=== PATIENT | male | born 1960 | race Caucasian/White ===

== ENCOUNTER 2017-08-31 17:12 | Emergency (ER) | payer SELFPAY ==
[2017-08-31 17:35] LABS: BILIRUBIN NEGATIVE (NEGATIVE); BLOOD TRACE-INTACT (NEGATIVE); CLARITY CLEAR (CLEAR); COLOR YELLOW (YELLOW); GLUCOSE NEGATIVE (NEGATIVE); KETONE NEGATIVE (NEGATIVE); LEUKO ESTERASE NEGATIVE (NEGATIVE); NITRITE NEGATIVE (NEGATIVE); PH 5.5 (5.0-9.0); SPECIFIC GRAVITY >= 1.030 (1.005-1.030); UROBILINOGEN 0.2 E.U./dl (0.2-1.0)
[2017-08-31 17:43] LABS: BACTERIA TRACE; WBC 0-2 wbc/hpf (0-5)
[2017-08-31 17:49] LABS: BASO % 0.3 % (0.0-1.0); EOS # 0.1 10*3/uL (0.0-0.4); EOS % 1.6 % (1.0-4.0); HEMATOCRIT 48.2 % (42.0-52.0); HEMOGLOBIN 16.6 g/dl (14.0-18.0); LYMPH % 22.4 % (27.0-41.0); MEAN CELL VOLUME 89.8 fl (80.0-94.0); MEAN CORPUSCULAR HGB 30.9 pg (27.0-31.0); MEAN CORPUSCULAR HGB CONC 34.4 g/dl (33.0-37.0); MEAN PLATELET VOLUME 9.2 fl (9.6-12.3); MONO # 0.5 10*3/uL (0.1-1.0); MONO % 6.1 % (3.0-9.0); NEUT # 6.1 10*3/uL (2.3-7.9); NEUT % 69.4 % (47.0-73.0); PLATELET COUNT AUTOMATED 299 10*3/uL (130-400); RED BLOOD COUNT 5.37 10*6/uL (4.50-5.90); RED CELL DISTRI WIDTH 13.2 % (0-14.5); WHITE BLOOD COUNT 8.8 10*3/uL (4.8-10.8)
[2017-08-31 18:05] LABS: ALBUMIN 4.1 gm/dl (3.1-4.5); ALKALINE PHOSPHATASE 86 U/L (45-117); BUN 12 mg/dl (7-24); CHLORIDE 104 mmol/L (98-107); LIPASE 144 U/L (73-393); POTASSIUM 4.1 mmol/L (3.5-5.1); SGOT/AST 11 IU/L (3-35); SGPT/ALT 36 U/L (12-78); SODIUM 137 mmol/L (136-145); TOTAL PROTEIN 7.6 gm/dL (6.4-8.2)
[2017-08-31] MEDS ORDERED: FLOMAX0.4 MG PO (20:50)
[2017-08-31] MEDS ORDERED: NAPROSYN500 MG PO (20:50)
[2017-08-31] MEDS ORDERED: NORCO 5-325 TA1 EACH PO (20:50)
== END 2017-08-31 20:54 | disposition home or self-care (01) ==
LOC: ED 17:12
PROVIDERS: Physician Assistant
DX: R10.9 Unspecified abdominal pain (principal); F17.200 Nicotine dependence, unspecified, uncomplicated; Z98.890 Other specified postprocedural states; Z88.1 Allergy status to other antibiotic agents; Z88.8 Allergy status to other drugs, medicaments and biological substances; Z87.442 Personal history of urinary calculi

== ENCOUNTER → 2018-02-14 | Outpatient (CLI) | payer OTHER ==
[~2018-02-14] MED LIST: FLOMAX0.4 MG PO; NAPROSYN500 MG PO; NORCO 5-325 TA1 EACH PO
[2018-02-14 08:55] LABS: ALBUMIN 4.4 gm/dl (3.1-4.5); ALKALINE PHOSPHATASE 95 U/L (45-117); BUN 18 mg/dl (7-24); CHLORIDE 103 mmol/L (98-107); CHOLESTEROL 192 mg/dL (<200); CREATININE 0.92 mg/dL (0.70-1.30); HDL CHOLESTEROL 31 mg/dl (40-60); LDL CHOLESTEROL 133 mg/dL (9-159); POTASSIUM 4.1 mmol/L (3.5-5.1); SGOT/AST 15 IU/L (3-35); SGPT/ALT 39 U/L (12-78); SODIUM 137 mmol/L (136-145); TOTAL PROTEIN 8.2 gm/dL (6.4-8.2); TRIGLYCERIDES 140 mg/dl (<150); VLDL CHOLESTEROL 28 mg/dL (6-40)
== END | disposition home or self-care (01) ==
LOC: LAB 07:59
PROVIDERS: Internal Medicine
DX: Z13.1 Encounter for screening for diabetes mellitus (principal); Z12.5 Encounter for screening for malignant neoplasm of prostate; E78.00 Pure hypercholesterolemia, unspecified; I10 Essential (primary) hypertension; M70.41 Prepatellar bursitis, right knee; E07.9 Disorder of thyroid, unspecified

== ENCOUNTER → 2018-08-04 | Outpatient (CLI) | payer OTHER | END | disposition home or self-care (01) | LOC: RAD 07:48 | DX: Z23 Encounter for immunization (principal); M17.11 Unilateral primary osteoarthritis, right knee; I10 Essential (primary) hypertension; R06.02 Shortness of breath; R07.89 Other chest pain; Z87.891 Personal history of nicotine dependence ==

== ENCOUNTER → 2018-08-25 | Outpatient (CLI) | payer OTHER ==
[2018-08-25 09:52] LABS: FREE T4 1.35 ng/dl (0.76-1.46)
== END | disposition home or self-care (01) ==
LOC: US 08-14 10:00 → LAB 07:36
PROVIDERS: Internal Medicine
DX: K76.0 Fatty (change of) liver, not elsewhere classified (principal)

== ENCOUNTER → 2018-09-18 | Day surgery (SDC) | payer OTHER ==
[~2018-09-18] MED LIST changes: +LIPITOR10 MG PO; +LOSARTAN-HCTZ1 EACH PO; +Synthroid,Lev100 MCG PO
--- NOTE | ~2018-09-18 | PROC NOTE ---
[place], [place] PROCEDURE NOTE NAME: [id number] UNIT #: [id number] ROOM: DOCTOR: SCOTT TOTH MD BIRTHDATE: [birth year] DOS: 09/18/2018 PREOPERATIVE DIAGNOSIS: Epigastric pain, screening examination. POSTOPERATIVE DIAGNOSES: Hiatal hernia, gastritis, duodenitis, colitis, and colon polyp (20 cm from the anal verge). PROCEDURE: EGD with antral biopsies x 2, colonoscopy with random colon biopsies, and polypectomy. ENDOSCOPIST: Scott Toth M.D. SUPERINTENDENT AUTOMOTIVE: ANTHONY. ANESTHESIA: MAC. INDICATIONS: This is a 58-year-old gentleman with family history of colon cancer and epigastric pain who is here for the above-mentioned procedure. The procedure and its complications were explained to the patient in detail preoperatively. Complications that were discussed included but were not limited to bleeding, colon perforation, gastric perforation, missed lesions, and prolonged pain. He agreed to proceed. DESCRIPTION OF PROCEDURE: After identifying the patient, the patient was brought to the endoscopy suite and placed in the left lateral position. After time-out procedure was called, IV sedation was administered by the anesthesia team and a bite block was placed, an EGD was performed first. An adult gastroscope was introduced into the mouth and advanced sequentially into the pharynx, esophagus, stomach, and the first 2 parts of the duodenum. There was found to be mild duodenitis and mild gastritis for which two antral biopsies in a random fashion were taken and sent for histopathological diagnosis. Upon withdrawal of the scope, a small hiatal hernia was identified as well without any esophagitis. The scope was withdrawn and attention was then turned towards the colonoscopy. A digital rectal exam was performed, which was within normal limits. An adult colonoscope was introduced into the anal canal and advanced sequentially into the rectum, sigmoid colon, descending colon, transverse colon, and ascending colon up to the cecum. Upon reaching the cecum, the scope was withdrawn. Total withdrawal time was approximately 10 minutes. Multiple colon biopsies from the ascending colon, transverse colon, descending colon, and sigmoid colon were taken for the presence of nonspecific looking colitis. Also, a small polyp was encountered during the procedure of the withdrawal at 15 cm from the anal verge, which was removed with the help of a snare polypectomy and polyp was then sent for histopathological diagnosis. After hemostasis was confirmed, the scope was withdrawn and the patient was brought back to the recovery room in stable fashion. Based on these findings, the patient is recommended to have another colonoscopy in the next 3-5 years or sooner if new symptoms develop. These findings will be discussed with the patient in the recovery room. [place], [place] PROCEDURE NOTE NAME: MCKINLEY LARRY Keily UNIT #: [id number] ROOM: DOCTOR: SCOTT TOTH MD BIRTHDATE: [birth year] Scott Toth MD CM:PROCNOTE:PROCEDURE NOTE [id number] SCOTT TOTH MD
[2018-09-18 07:50] VITALS: BP 107/67
[2018-09-18 08:41] VITALS: BP 119/85
[2018-09-18 08:55] VITALS: BP 119/85
[2018-09-18 09:10] VITALS: BP 119/85
[2018-09-18 09:25] VITALS: BP 119/88
== END | disposition home or self-care (01) ==
DX: K62.1 Rectal polyp (principal); K29.50 Unspecified chronic gastritis without bleeding; K29.80 Duodenitis without bleeding; K44.9 Diaphragmatic hernia without obstruction or gangrene; I10 Essential (primary) hypertension; E07.9 Disorder of thyroid, unspecified; E78.5 Hyperlipidemia, unspecified; F17.210 Nicotine dependence, cigarettes, uncomplicated; E66.09 Other obesity due to excess calories; Z79.899 Other long term (current) drug therapy; Z88.8 Allergy status to other drugs, medicaments and biological substances; Z80.0 Family history of malignant neoplasm of digestive organs; Z98.890 Other specified postprocedural states; Z68.31 Body mass index [BMI] 31.0-31.9, adult

== ENCOUNTER → 2018-09-29 | Outpatient (CLI) | payer OTHER | END | disposition home or self-care (01) | LOC: MAMMO 14:30 | DX: R22.32 Localized swelling, mass and lump, left upper limb (principal) ==